=== PATIENT | female | born 1960 | race Caucasian/White ===

== ENCOUNTER 2016-07-04 12:06 | Emergency (ER) | payer OTHER ==
[~2016-07-04] VITALS: Ht 182.9 cm; Wt 80.0 kg
[~2016-07-04 12:06] MED LIST: unknown meds
[2016-07-04 12:38] VITALS: Ht 182.9 cm; Wt 80.0 kg
[2016-07-04 17:17] LABS: ADD UMIC NO; URINE BILIRUBIN (Dip) NEGATIVE (NEGATIVE); URINE BLOOD (Dip) NEGATIVE (NEGATIVE); URINE COLOR LT. YELLOW (YELLOW); URINE GLUCOSE (Dip) NEGATIVE (NEGATIVE); URINE KETONES (Dip) NEGATIVE (NEGATIVE); URINE LEUKOCYTE ESTERASE (Dip) NEGATIVE (NEGATIVE); URINE NITRITE (Dip) NEGATIVE (NEGATIVE); URINE TOTAL PROTEIN (Dip) NEGATIVE (NEGATIVE); URINE UROBILINOGEN (Dip) 0.2 E.U./dL (0.1-1.0)
[2016-07-04] MEDS ORDERED: TRAM50TA2 PO (18:03)
--- NOTE | 2016-07-04 19:03 | ERD ---
ER Documentation Chief Complaint Date/Time DATE: 07/04/16 TIME: 18:58 Chief Complaint lower back pain possible urine infection per patient HPI 55-year-old female with left-sided cerebral palsy presents to the ED complaining of wanting to have her urine rechecked for a bladder infection. States that she was diagnosed with cystitis 1 week ago and was taking antibiotic for 3 days. Reports that the antibiotic made her symptoms feel better. Denies any dysuria, urgency, frequency, abdominal pain, nausea, vomiting, diarrhea. Patient is unable to describe the pain. States that it feels like it is "in the inside." ROS All systems reviewed and are negative except as per history of present illness. Medications Home Meds Active Scripts Tramadol HCl (Tramadol HCl) 50 Mg Tablet, 50 MG PO Q6 Y for PAIN, #20 TAB Prov:PARAM MCGRAW PA-C 07/04/16 Reported Medications [unknown meds] No Conflict Check 06/13/09 PMhx/Soc History of Surgery: Yes (right hand and leg from cerebral palsy,c-sections) Hx Neurological Disorder: Yes (cerebral palsy) Hx Respiratory Disorders: No Hx Cardiac Disorders: No Hx Miscellaneous Medical Probl: No Hx Alcohol Use: Yes Hx Substance Use: Yes (speed) Hx Tobacco Use: Yes (2-3 cigarettes per day) Smoking Status: Current every day smoker Physical Exam Vitals Vital Signs Date Time Temp Pulse Resp B/P Pulse Ox O2 Delivery O2 Flow Rate FiO2 07/04/16 12:38 97.8 90 18 159/75 98 Physical Exam Const: Dya-djg-upaeciyhe, well-nourished. In no acute distress. Head: Atraumatic, normocephalic Eyes: Normal Conjunctiva without injection. No purulent discharge. PERRLA. EOMI ENT: Normal external ear. Ear canal without erythema. Tympanic membrane pearly patterson without effusion or bulging. Nasal canal clear with normal turbinates. Moist oropharynx without tonsillar exudates. Non-erythematous pharynx. Uvula midline. No drooling. No trismus. Neck: No cervical midline tenderness. Full range of motion. No meningismus. No cervical lymphadenopathy. No JVD. Resp: Clear to auscultation bilaterally. No wheezing, rhonchi, rales, or crackles. No accessory muscle use. No retractions. Cardio: Regular rate and rhythm. No murmurs, rubs or gallops. Abd: Soft, non tender, non distended. Normal bowel sounds. No palpable masses. No rebound tenderness. No guarding. Negative McBurney's Point. Negative Austin's Sign. Skin: Normal skin turgor. No petechiae or rashes Back: No midline tenderness. No CVA tenderness. Ext: No cyanosis, or edema. Distal pulses intact bilaterally. Neur: Awake and alert. Normal gait. Normal coordination. Cranial Nerves II- VII intact. Normal finger to nose. Muscle strength 5/5. Sensation intact. Psych: Normal Mood and Affect Results 24 hrs Laboratory Tests Test 07/04/16 16:55 Urine Bilirubin NEGATIVE Urine Clarity CLEAR Urine Color LT. YELLOW Urine Glucose NEGATIVE% Urine Hemoglobin NEGATIVE Urine Ketones NEGATIVE Urine Leukocyte Esterase NEGATIVE Urine Nitrite NEGATIVE Urine Specific [place] 1.025 Urine Total Protein NEGATIVE Urine Urobilinogen 0.2 E.U./dL Urine pH 6.0 Procedures/MDM 55-year-old female with a past medical history of cerebral palsy presents to the ED complaining of left flank pain. Patient is afebrile and nontoxic- appearing. Patient has normal vital signs. A urinalysis was ordered to further evaluate patient. Urinalysis shows no leukocyte esterase, hematuria, nitrite. A urine culture will be sent out. Patient's left flank pain could likely be due to possible musculoskeletal pain versus flank pain of unknown origin. There is low suspicion for a septic renal stone, nephrolithiasis, pyelonephritis, or other emergent conditions. A differential diagnosis considered includes but is not limited to gastritis, GERD, peptic ulcer disease , cholecystitis, choledocholithiasis, cholangitis, pancreatitis, appendicitis, bowel obstruction, ileus, volvulus, nephrolithiasis, pyelonephritis, hepatitis, perforated viscus, diverticulitis, abdominal hernia, acute abdomen, mesenteric ischemia or other emergent conditions. 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 Instructed patient to return to the ED sooner for any worsening symptoms. Patient's questions were answered. Patient understood and agreed with discharge plan. Patient discharged stable. Departure Diagnosis: Primary Impression: Encounter for urine test Additional Impression: Left flank pain Condition: Stable Patient Instructions: Flank Pain, Uncertain Cause, Urine Culture Referrals: COMMUNITY CLINICS YOU HAVE RECEIVED A MEDICAL SCREENING EXAM AND THE RESULTS INDICATE THAT YOU DO NOT HAVE A CONDITION THAT REQUIRES URGENT TREATMENT IN THE EMERGENCY DEPARTMENT. FURTHER EVALUATION AND TREATMENT OF YOUR CONDITION CAN WAIT UNTIL YOU ARE SEEN IN YOUR DOCTORS OFFICE WITHIN THE NEXT 1-2 DAYS. IT IS YOUR RESPONSIBILITY TO MAKE AN APPOINTMENT FOR FOLOW-UP CARE. IF YOU HAVE A PRIMARY DOCTOR --you should call your primary doctor and schedule an appointment IF YOU DO NOT HAVE A PRIMARY DOCTOR YOU CAN CALL OUR PHYSICIAN REFERRAL HOTLINE AT IF YOU CAN NOT AFFORD TO SEE A PHYSICIAN YOU CAN CHOSE FROM THE FOLLOWING [facility] [address] [facility]. [facility] [address] [facility]. [facility] [address] [facility] [facility] [address] [facility] [facility] [address] [facility]. [facility] [address] [facility]. [facility] YOU HAVE RECEIVED A MEDICAL SCREENING EXAM AND THE RESULTS INDICATE THAT YOU DO NOT HAVE A CONDITION THAT REQUIRES URGENT TREATMENT IN THE EMERGENCY DEPARTMENT. FURTHER EVALUATION AND TREATMENT OF YOUR CONDITION CAN WAIT UNTIL YOU ARE SEEN IN YOUR DOCTORS OFFICE WITHIN THE NEXT 1-2 DAYS. IT IS YOUR RESPONSIBILITY TO MAKE AN APPOINTMENT FOR FOLOW-UP CARE. IF YOU HAVE A PRIMARY DOCTOR --you should call your primary doctor and schedule and appointment IF YOU DO NOT HAVE A PRIMARY DOCTOR YOU CAN CALL OUR PHYSICIAN REFERRAL HOTLINE AT . IF YOU CAN NOT AFFORD TO SEE A PHYSICIAN YOU CAN CHOSE FROM THE FOLLOWING [facility] INSTITUTIONS: [facility] [address] [email or web address] [address] [facility] [address] [place] [address] [facility] + [facility] [address] [place] [address] [facility] URGENT CARE/SPECIALTIES Additional Instructions: FOLLOW UP WITH YOUR PRIMARY CARE PHYSICIAN TOMORROW.Return to this facility if you are not improving as expected. You have been given a medicine which may cause drowsiness.DO NOT DRIVE OR OPERATE DANGEROUS MACHINERY while taking this medicine! PARAM MCGRAW PA-C Jul 04, 2016 19:03
== END 2016-07-04 20:22 | disposition left against medical advice (07) ==
LOC: FTE 12:06
DX: Z00.00 Encounter for general adult medical examination without abnormal findings (principal); R10.9 Unspecified abdominal pain; F17.210 Nicotine dependence, cigarettes, uncomplicated
CPT/HCPCS: 81003; 99283

== ENCOUNTER 2017-02-11 11:22 | Day surgery (SDC) | payer OTHER ==
[~2017-02-11] VITALS: Ht 177.8 cm; Wt 89.1 kg
[~2017-02-11 11:22] MED LIST changes: +TRAM50TA2 PO
[2017-02-11 12:05] VITALS: Ht 177.8 cm; Wt 89.1 kg
[2017-02-11] MEDS ORDERED: HIGH BP MED PO (12:12)
[2017-02-11] MEDS ORDERED: VALIUM PO (12:12)
[2017-02-11 12:36] VITALS: BP 146/82; PULSE 76
[2017-02-11] MEDS ORDERED: PROPOFOL 40 ML ONE (14:07)
--- NOTE | 2017-02-11 15:14 | OPPN ---
Date/Time of Note Date/Time of Note DATE: 02/11/17 TIME: 15:11 Operative Report Preoperative Diagnosis Screening colonoscopy Postoperative Diagnosis Diverticulosis Small 3 mm polyp at 20 cm Operation/Procedure Performed Colonoscopy cold biopsy polypectomy at 20 cm Provider: VAIBHAV SORIANO MD Anesthesia Type: MAC (Dr. Galvan) Estimated blood loss: none Transfusion Required: no Specimens 3 mm polyp at 20 cm removed cold biopsy forceps Grafts/Implants: none Complications: no (3 MM polyp at 20 cm) VAIBHAV SORIANO MD Feb 11, 2017 15:14
--- NOTE | 2017-02-12 01:47 | GILP ---
DATE OF PROCEDURE: 02/11/2017 PREOPERATIVE DIAGNOSIS: Screening colonoscopy. POSTOPERATIVE DIAGNOSIS: Polyp at 20 cm, 3-mm polyp diverticulosis. DESCRIPTION OF PROCEDURE: The patient was put in left lateral decubitus after obtaining informed consent. The patient was sedated, monitored by the anesthesiologist, Dr. Navarrete, and rectal exam done, which was normal. Advanced Olympus video colonoscope all the way to the cecum. Diverticulosis was noted in the left colon. Right colon was normal. Cecum and ascending colon are normal. Transverse colon was normal. Descending, sigmoid colon showed only diverticulosis. At 20 cm, a 3-mm polyp was noted. Photography done. Multiple core biopsies, polypectomy done then removed completely. Withdrew the scope slowly out. Rectum examined, including retroflexion, and unremarkable. PLAN: Await for biopsy report. Follow up as an outpatient. Repeat colonoscopy in 3 years. Dictated By: Emeterio Romero MD /stacy/zehra /Document#: [id number] ; DR. BATSHEVA BRVAO
== END 2017-02-11 18:33 | disposition home or self-care (01) ==
LOC: GIL 11:22
PROVIDERS: ATTEND Internal Medicine
DX: Z12.11 Encounter for screening for malignant neoplasm of colon (principal); K63.5 Polyp of colon; K57.30 Diverticulosis of large intestine without perforation or abscess without bleeding; I10 Essential (primary) hypertension
CPT/HCPCS: 45380; 88305; Z7610

== ENCOUNTER 2017-10-19 05:41 | Inpatient (IN) | END 2017-10-27 16:15 | DRG 469 ==

== ENCOUNTER 2018-09-25 11:24 | Inpatient (IN) | payer OTHER ==
[~2018-09-25] VITALS: Ht 172.7 cm; Wt 95.8 kg
[2018-09-25] VITALS (24 sets, daily range): BP systolic 105–161; BP diastolic 56–91; PULSE 68–94; RESP 14–20; Ht 172.7 cm; Wt 95.8 kg
[~2018-09-25 11:24] MED LIST changes: +ENOX40DI12 SC; +HYDR-3601 PO; +LOSA25TA12 PO; +METO-319 PO; +OXYC-431 PO; -TRAM50TA2 PO; +TRAZ-149 PO; -unknown meds
[2018-09-25] MEDS ORDERED: CEFAZOLIN 2 GM/50 ML (PMX) 50 ML IVPB ONE (11:30)
[2018-09-25] MEDS ORDERED: LOSA50TA14 PO (11:59)
[2018-09-25] MEDS ORDERED: POLYMYXIN/BACITRACIN 1L IRRIG ONE (13:04)
--- NOTE | 2018-09-25 13:11 | PREAC ---
Date/Time of Note Date/Time of Note DATE: 09/25/18 TIME: 13:09 Anesthesia Eval and Record Evaluation Time Pre-Procedure Interview DATE: 09/25/18 TIME: 13:09 Age 58 Sex female NPO: 8 hrs Preoperative diagnosis RIGHT FLATFOOT Planned procedure SURGICAL RECONSTRUCTION OF RIGHT FLAT FOOT DEFORMITY, INCLUDING SUBTALAR JOINT ARTHRODESIS Past Medical History Past Medical History: Includes Cardio: HTN GI: Obesity Surgery & Anesthesia Issues No known issue Meds Anticoagulation: No Beta Saniya within 24 hr: No Reason Beta Saniya not given: Pt. not on B-Saniya Reported Medications Losartan Potassium* (Losartan Potassium*) 50 Mg Tablet, 50 MG PO DAILY, TAB 09/25/18 Discontinued Reported Medications Losartan Potassium* (Losartan Potassium*) 25 Mg Tablet, 25 MG PO DAILY, TAB 10/19/17 Metoprolol Succinate* (Toprol XL*) 50 Mg Tab.er.24h, 50 MG PO DAILY, #30 TAB 10/19/17 Discontinued Scripts Trazodone Hcl* (Desyrel*) 50 Mg Tab, 25 MG PO HS PRN for SLEEP for 1 Day, TAB Prov:PEREZ RAMÍREZ MD 10/27/17 Enoxaparin Sodium (Enoxaparin Sodium) 40 Mg/0.4 Ml Syringe, 40 MG SC DAILY for 10 Days Prov:PEREZ RAMÍREZ MD 10/27/17 Hydrocodone Bit-Acetaminophen (Hydrocodone Bit-APAP) 5-325MG Tablet, 1 TAB PO Q6H PRN for MODERATE PAIN LEVEL 4-6 for 10 Days, TAB Prov:PEREZ RAMÍREZ MD 10/27/17 Oxycodone HCl/Acetaminophen (Oxycodone-Acetaminophen 10-325) 1 Each Tablet, 1 TAB PO Q4H PRN for PAIN for 10 Days, TAB Prov:PEREZ RAMÍREZ MD 10/27/17 Meds reviewed: Yes Allergies Coded Allergies: No Known Allergy (Unverified , 09/25/18) Allergies Reviewed: Yes Labs/Studies Labs Reviewed: Reviewed by anesthesiologist test: N/A Studies: ECG (NL) Pre-procedure Exam Last vitals Vital Signs Date Temp Pulse Resp B/P (MAP) Pulse Ox O2 O2 Flow FiO2 Time Delivery Rate 09/25/18 97.9 94 20 126/88 96 Room Air 12:38 (101) Airway: Adequate mouth opening, Adequate thyromental dist Mallampati: Mallampati II Teeth: Abnormal (UPPER DENTURE) Lung: Normal Heart: Normal ASA Physical Status ASA physical status: 2 Emergency: None Planned Anesthetic General/MAC: ETT Nerve block: Sciatic (right) Planned Pain Management Single shot nerve block, Parenteral pain med Pre-operative Attestations Prior to commencing anesthesia and surgery, the patient was re-evaluated, there was verification of: *The patient's identity *The results of appropriate recent lab work and preoperative vital signs *The above evaluation not changing prior to induction *Anesthetic plan, risk benefits, alternative and complications discussed with patient/family; questions answered; patient/family understands, accepts and wishes to proceed. Pawan Rangel M.D. Sep 25, 2018 13:11
[2018-09-25] MEDS ORDERED: GLYCOPYRROLATE 0.4 MG INJ ONE (13:16)
[2018-09-25] MEDS ORDERED: ROCURONIUM 50 MG INJ ONE (13:16)
[2018-09-25] MEDS ORDERED: MIDAZOLAM 1 MG/ML 2 ML INJ ONE (13:16)
[2018-09-25] MEDS ORDERED: PROPOFOL 20 ML ONE (13:16)
[2018-09-25] MEDS ORDERED: CEFAZOLIN 1 GM INJ ONE (13:16)
[2018-09-25] MEDS ORDERED: NEOSTIGMINE 3 MG/3 ML SYRINGE ONE (13:16)
[2018-09-25] MEDS ORDERED: DEXAMETHASONE 4 MG/ML 5 ML INJ ONE (13:16)
[2018-09-25] MEDS ORDERED: FENTAnyl 50 MCG/ML VIAL ONE (13:16)
[2018-09-25] MEDS ORDERED: ONDANSETRON 4 MG INJ ONE (13:16)
[2018-09-25] MEDS ORDERED: ROPIVACAINE 0.5 % 30 ML VIAL ONE ×2 (13:20→13:53)
--- NOTE | 2018-09-25 13:20 | HPN ---
Date/Time of Note Date/Time of Note DATE: 09/25/18 TIME: 13:20 Interval H&P Admission Note Pt. seen H&P reviewed: No system changes KASSY DRAKE DPM Sep 25, 2018 13:20
[2018-09-25] MEDS ORDERED: LABETALOL HCL 20MG INJ IV PRN (13:30)
[2018-09-25] MEDS ORDERED: hydrALAzine 20 MG INJ IV PRN (13:30)
[2018-09-25] MEDS ORDERED: ONDANSETRON 4 MG INJ IV PRN (13:30)
[2018-09-25] MEDS ORDERED: EPHEDrine SULFATE 50 MG/5 ML SYG IV PRN (13:30)
[2018-09-25] MEDS ORDERED: DIPHENHYDRAMINE 50 MG INJ IV PRN (13:30)
[2018-09-25] MEDS ORDERED: TRIMETHOBENZAMIDE 100 MG/ML VIAL IM PRN (13:30)
[2018-09-25] MEDS ORDERED: HYDROmorphONE 1 MG/5 ML IV SYRINGE IV PRN ×2 (13:30)
[2018-09-25] MEDS ORDERED: MIDAZOLAM 1 MG/ML 2 ML INJ IV PRN (13:30)
[2018-09-25] MEDS ORDERED: OXYCODONE/ACETAMINOPHEN (5/325) TAB PO PRN ×2 (13:30)
[2018-09-25] MEDS ORDERED: FENTAnyl 50 MCG/ML VIAL IV PRN ×3 (13:30)
[2018-09-25] MEDS ORDERED: IPRATROPIUM (NEB) 0.5 MG/2.5 ML AMP HHN PRN (13:30)
[2018-09-25] MEDS ORDERED: ALBUTEROL 0.083% (NEB) 2.5 MG/3 ML AMP HHN PRN (13:30)
[2018-09-25] MEDS ORDERED: MEPERIDINE 25 MG INJ IV PRN (13:30)
--- NOTE | 2018-09-25 15:35 | PAC ---
Date/Time of Note Date/Time of Note DATE: 09/25/18 TIME: 15:35 Post-Anesthesia Notes Post-Anesthesia Note Last documented vital signs Vital Signs Date Temp Pulse Resp B/P (MAP) Pulse Ox O2 O2 Flow FiO2 Time Delivery Rate 09/25/18 97.9 94 20 126/88 96 Room Air 12:38 (101) Activity: WNL Respiratory function: WNL Cardiovascular function: WNL Mental status: Baseline Pain reasonably controlled: Yes Hydration appropriate: Yes Nausea/Vomiting absent: Yes Pawan Rangel M.D. Sep 25, 2018 15:35
--- NOTE | 2018-09-25 15:46 | SIPON ---
Date/Time of Note Date/Time of Note DATE: 09/25/18 TIME: 15:45 Operative Report Preoperative Diagnosis Severe right flatfoot deformity S/P right ankle total ankle replacement Excessive pronation of the subtalar joint Right foot pain Gait disturbance Postoperative Diagnosis Severe right flatfoot deformity S/P right ankle total ankle replacement Excessive pronation of the subtalar joint Right foot pain Gait disturbance Operation/Procedure Performed Right flatfoot reconstruction Subtalar joint arthroroesis using implant Surgeon see signature line cardiovascular physician assistant None Anesthesia: general Estimated blood loss: minimal Transfusion Required none Specimen None Grafts/Implants none Complications none KASSY DRAKE DPM Sep 25, 2018 15:46
[2018-09-25] MEDS: HYDROmorphONE 1 MG/5 ML IV SYRINGE IV PRN ×2 (15:53→16:05)
--- NOTE | 2018-09-25 15:53 | OPR ---
Date/Time of Note Date/Time of Note DATE: 09/25/18 TIME: 15:53 Operative Report Procedure Date: Sep 25, 2018 Preoperative Diagnosis Right flatfoot deformity Achilles equinus right Status post right total ankle replacement Morbid obesity Hypertension Cerebral palsy Postoperative Diagnosis Right flatfoot deformity Achilles equinus right Status post right total ankle replacement Morbid obesity Hypertension Cerebral palsy Operation/Procedure Performed Right calcaneal medial slide osteotomy Subtalar joint arthrodesis using implant right foot Intraoperative use and interpretation of fluoroscopy Application of posterior splint to the right lower extremity Surgeon see signature line Marine Engine Driver None Anesthesia Type: general Estimated Blood Loss: minimal Transfusion none Specimen None Grafts/Implants none Complications none Pt Condition Post Procedure: stable Disposition: PACU Indications This is a pleasant 58-year-old female patient who is status post right total ankle replacement 1 year ago. She has severe right foot deformity and equinus of the Achilles tendon causing severe right flatfoot and causing significant pain when she is ambulating. She was fully evaluated in the office both radiographically and clinically and the recommendation was made to do surgical correction of right flatfoot deformity to include possible right Achilles tendon lengthening, medial calcaneal osteotomy, subtalar joint arthrodesis with implant, forefoot correction. Risks and complications of this type of surgery was discussed with patient in great detail. The risks and complications discussed, include but are not limited to, postoperative infection, postoperative pain and disability, gait disturbance, failure of surgery to correct the problem, need for additional surgical procedures, nonunion, delayed union, malunion of bone, gait disturbance, deep venous thrombosis, limb loss and loss of life. The patient understands the risks and complications discussed and agrees to the procedure. An informed consent was obtained, signed and placed in the chart. No guarantee or warranty was given or implied as to the outcome of the procedure either in verbal or written form. Procedure Description The patient was taken to the operating room and was placed on the operating table in the supine position. A thigh tourniquet was applied. Patient was placed under general anesthesia by the anesthesiologist. A 10 pound bag was placed on the ipsilateral hip. The right lower extremity was scrubbed, prepped and draped in the usual aseptic manner. A timeout was called by the circulating nurse and agreed upon by all members of the operating room. The right lower extremity was then scrubbed, prepped and draped in the usual aseptic manner. An Esmarch bandage was utilized to exsanguinate the right lower extremity and the thigh tourniquet was inflated to 300 mmHg pressure. Procedure #1: Subtalar joint arthrodesis using implant Procedure #2: Right medial calcaneal slide osteotomy with internal fixation Adjunctive procedures: Intraoperative use and interpretation of fluoroscopy; application of posterior splint x2 to the right lower extremity Attention was directed to the right sinus Tarsi area. A small 1 cm incision was made on the sinus Tarsi using a #15 blade. Bleeders were cauterized as necessary. Dissection was then deepened to the sinus Tarsi canal using blunt dissection. The guidewire was placed into the sinus canal and verified using intraoperative fluoroscopy. The canal was widened and I started with a #6 implants and proceeded with a #8 implant. The #8 implants seem to be providing control of excessive pronation of the subtalar joint. Next, the size 8 implant was inserted and verified under intraoperative fluoroscopy. Next, an incision was made on the lateral aspect of the right calcaneus using a #15 blade. This incision was deepened through to the periosteal layer with care being taken to identify vital neurovascular structures. A arnold elevator was used to dissect periosteally and expose the lateral aspect of the calcaneus. Using intr aoperative fluoroscopy, I used an osteotome and mallet and I made an osteotomy across the body of the calcaneus on the posterior aspect. Next, the posterior aspect of the calcaneus was moved medially and I used 2 kesha for fixation of this new position for the calcaneus. Intraoperative fluoroscopy guidance was used. At this point, I checked for equinus and was found to have 5 degrees of dorsiflexion of the ankle joint. I checked the forefoot and noted that with the current fixation and correction, patient was able to be plantigrade on the medial side as well. The Achilles tendon lengthening and the forefoot correction will be delayed at this time. Both incisions were then closed in layered closure using 4-0 Vicryl and skin was closed using 2-0 nylon in simple suture technique. The patient will be receiving a popliteal block by the anesthesiologist. Sterile dressing was applied to the right foot. The thigh tourniquet was deflated at this time and prompt hyperemic response was noted to the digits of the right foot. I placed to posterior splints on the right lower extremity. Patient tolerated the procedure and anesthesia well. She was transferred to the recovery room with vital signs stable and vascular status intact to the right lower extremity. The patient will be admitted to the hospital for pain management. Patient is to remain nonweightbearing on the right lower extremity. Postoperative orders were written. I have contacted the hospitalist for admission orders. Patient will be followed in-house. KASSY DRAKE DPM Sep 25, 2018 15:53
--- NOTE | 2018-09-25 16:48 | HP ---
Date/Time of Note Date/Time of Note DATE: 09/25/18 TIME: 16:37 Assessment/Plan VTE Prophylaxis Risk score (from Nsg)>0 risk: 3 SCD applied (from Ns): Yes Pharmacological prophylaxis: NA/contraindicated Pharm contraindication: low risk/ambulating Lines/Catheters IV Catheter Type (from Nrsg): Peripheral IV Assessment/Plan Assessment/Plan 58 yo obese woman history of cerebral palsy and HTN admitted after scheduled R foot surgery # s/p Right flatfoot reconstruction - Dr. Mcclain following - PO opioid analgesia prn - PT - CM consulted for rehab placement. #HTN - Will hold home ARB due to nationwide recall (losartan found to be contaminated with NMDA) - Benazepril while inpatient. DVT: SCDs GI: None HPI/ROS Admit Date/Time Admit Date/Time September 25, 2018 Hx of Present Illness Ms. Galeas is a pleasant 58 yo woman with history of HTN and cerebral palsy admitted after scheduled R foot surgery. The patient has a history of R sided spasticity due to her cerebral palsy. She had severe R ankle and foot pain for several years; had ankle surgery by Dr. Mcclain about 1 year ago. Continued to have pain from flat feet so scheduled today for elective foot surgery. She denies ever requiring opiates for this pain. Has been controlled on occasional tylenol and ibuprofen. Postoperative patient doing well, vitals good, pain adequately controlled. Dr. Mcclain requested admission for pain control, PT, and placement in rehab. ROS 12 point review of systems done, negative except per HPI. PMH/Family/Social Past Medical History Cerebral palsy Hypertension Medications Current Medications Hydromorphone HCl (Dilaudid) 0.2 mg PACU PRN IV MILD PAIN 1-3 Last administered on 09/25/18at 16:35; Admin Dose 0.2 MG; Start 09/25/18 at 13:30; Stop 09/25/18 at 18:00 Hydromorphone HCl (Dilaudid) 0.4 mg PACU PRN IV MOD PAIN 4-6 Last administered on 09/25/18at 16:05; Admin Dose 0.4 MG; Start 09/25/18 at 13:30; Stop 09/25/18 at 18:00 Hydromorphone HCl (Dilaudid) 0.6 mg PACU PRN IV SEVERE PAIN 7-10; Start 09/25/18 at 13:30; Stop 09/25/18 at 18:00 Fentanyl (Sublimaze) 25 mcg PACU ORDER PRN IV MILD PAIN 1-3; Start 09/25/18 at 13:30; Stop 09/25/18 at 18:00 Fentanyl (Sublimaze) 50 mcg PACU ORDER PRN IV MOD PAIN 4-6; Start 09/25/18 at 13:30; Stop 09/25/18 at 18:00 Fentanyl (Sublimaze) 75 mcg PACU ORDER PRN IV SEVERE PAIN 7-10; Start 09/25/18 at 13:30; Stop 09/25/18 at 18:00 Oxycodone/ Acetaminophen (Percocet (5/ 325)) 1 tab PACU ORDER PRN PO .PAIN 1-5; Start 09/25/18 at 13:30; Stop 09/25/18 at 18:00 Oxycodone/ Acetaminophen (Percocet (5/ 325)) 2 tab PACU ORDER PRN PO .PAIN 6-10; Start 09/25/18 at 13:30; Stop 09/25/18 at 18:00 Ondansetron HCl (Zofran Inj) 4 mg PACU ORDER PRN IV NAUSEA/VOMITING Last administered on 09/25/18at 15:53; Admin Dose 4 MG; Start 09/25/18 at 13:30; Stop 09/25/18 at 18:00 Trimethobenzamide HCl (Tigan) 200 mg PACU ORDER PRN IM NAUSEA/VOMITING; Start 09/25/18 at 13:30; Stop 09/25/18 at 18:00 Labetalol HCl (Labetalol) 5 mg PACU ORDER PRN IV HIGH BLOOD PRESSURE Last administered on 09/25/18at 15:49; Admin Dose 5 MG; Start 09/25/18 at 13:30; Stop 09/25/18 at 18:00 Hydralazine HCl (Apresoline) 5 mg PACU ORDER PRN IV HIGH BLOOD PRESSURE; Start 09/25/18 at 13:30; Stop 09/25/18 at 18:00 Ephedrine Sulfate 5 mg PACU ORDER PRN IV BLOOD PRESSURE SUPPORT; Start 09/25/18 at 13:30; Stop 09/25/18 at 18:00 Albuterol (Proventil 0.083% (Neb)) 2.5 mg PACU ORDER PRN HHN .WHEEZING; Start 09/25/18 at 13:30; Stop 09/25/18 at 18:00 Ipratropium Lynch (Atrovent 0.02% (Neb)) 0.5 mg PACU ORDER PRN HHN .WHEEZING; Start 09/25/18 at 13:30; Stop 09/25/18 at 18:00 Meperidine HCl (Demerol) 25 mg PACU ORDER PRN IV .RIGORS; Start 09/25/18 at 13:30; Stop 09/25/18 at 18:00 Diphenhydramine HCl (Benadryl) 25 mg PACU ORDER PRN IV .PRURITUS; Start 09/25/18 at 13:30; Stop 09/25/18 at 18:00 Midazolam HCl (Versed) 0.5 mg PACU ORDER PRN IV .ANXIETY; Start 09/25/18 at 13:30; Stop 09/25/18 at 18:00 IV Flush (NS 3 ml) 3 ml PER PROTOCOL IV ; Start 09/25/18 at 17:00 Ondansetron HCl (Zofran Inj) 4 mg Q6H PRN IV NAUSEA/VOMITING; Start 09/25/18 at 17:00; Status UNV Acetaminophen (Tylenol Tab) 650 mg Q6H PRN PO .PAIN 1-3 OR TEMP; Start 09/25/18 at 17:00; Status UNV Acetaminophen/ Hydrocodone Bitart ([place] (5/325)) 1 tab Q4H PRN PO BREAKTHROUGH PAIN; Start 09/25/18 at 17:00; Status UNV Coded Allergies: No Known Allergy (Unverified , 09/25/18) Past Surgical History C section x3 Appendectomy R hand surgery Family History Significant Family History: no pertinent family hx Social History Alcohol Use: occasionally Smoking Status: Former smoker (quit 1.5 years ago) Drug Use: marijuana (rarely) Exam/Review of Systems Vital Signs Vitals Vital Signs Date Temp Pulse Resp B/P (MAP) Pulse Ox O2 O2 Flow FiO2 Time Delivery Rate 09/25/18 76 16 137/80 95 Nasal 2.0 16:30 (99) Cannula 09/25/18 98.1 15:40 Exam Exam Gen: Obese woman well developed no acute distress. Eyes: PERRL, no icterus HEENT: Moist mucous membranes, clear oropharynx Neck: No lymphadenopathy Card: Regular rate and rhythm, no murmurs Pulm: Clear to auscultation bilaterally Abd: Soft, nontender, nondistended. Ext: R lower leg splinted. Peripheral cap refill and sensation intact. L leg peripheral pulses intact. Skin: warm, dry, well perfused. JUAN RAMON PONCE MD Sep 25, 2018 16:47
[2018-09-25] MEDS ORDERED: ACETAMINOPHEN 325 MG TAB PO PRN (17:00)
[2018-09-25] MEDS: LISINOPRIL 10 MG TAB PO SCH (17:00)
[2018-09-25] MEDS ORDERED: NACL 0.9% 3 ML SYG IV SCH (17:00)
[2018-09-25] MEDS: morphine 4 MG/ML VIAL IV PRN (17:28)
[2018-09-25] MEDS: HYDROCODONE/APAP (5/325) TAB PO PRN (21:00)
[2018-09-26 00:07] VITALS: BP 102/52; PULSE 85; RESP 18
[2018-09-26] MEDS: HYDROCODONE/APAP (5/325) TAB PO PRN ×2 (02:50→20:51)
[2018-09-26 04:03] VITALS: BP 108/60; PULSE 82; RESP 18
[2018-09-26 07:30] VITALS: BP 112/62; PULSE 78; RESP 19
[2018-09-26] MEDS: ONDANSETRON 4 MG INJ IV PRN ×2 (07:54→17:06)
[2018-09-26] MEDS: morphine 4 MG/ML VIAL IV PRN ×4 (07:54→20:51)
[2018-09-26] MEDS: LISINOPRIL 10 MG TAB PO SCH (07:56)
[2018-09-26 14:21] VITALS: BP 121/65; PULSE 88; RESP 18
--- NOTE | 2018-09-26 16:28 | PN ---
Date/Time of Note Date/Time of Note DATE: 09/26/18 TIME: 16:27 Assessment/Plan VTE Prophylaxis Risk score (from Ns)>0 risk: 7 SCD applied (from Ns): Yes Pharmacological prophylaxis: NA/contraindicated Pharm contraindication: low risk/ambulating Lines/Catheters IV Catheter Type (from Nrsg): Saline Lock Assessment/Plan Assessment/Plan 58 yo obese woman history of cerebral palsy and HTN admitted after scheduled R foot surgery # s/p Right flatfoot reconstruction - Dr. Mcclain following - PO opioid analgesia prn - PT #HTN - Will hold home ARB due to nationwide recall (losartan found to be contaminated with NMDA) - Benazepril while inpatient. DVT: SCDs GI: None Dispo: Patient wants to go to [facility] for rehab. Pending authorization from case management. Result Diagram: 09/26/1844409/26/18444 Subjective 24 Hr Interval Summary Free Text/Dictation No acute overnight events. Patient doing well, walking with PT. Exam/Review of Systems Exam Vitals Vital Signs Date Temp Pulse Resp B/P (MAP) Pulse Ox O2 O2 Flow FiO2 Time Delivery Rate 09/26/18 98.2 88 18 121/65 98 14:21 (83) 09/25/18 Nasal 2.0 18:20 Cannula Intake and Output 09/25/18 09/25/18 09/26/18 1414:59 22:59 06:59 IntakeIntake Total 1000 ml 200 ml OutputOutput Total 10 ml BalanceBalance 1000 ml -10 ml 200 ml Exam Gen: Obese woman well developed no acute distress. Eyes: PERRL, no icterus HEENT: Moist mucous membranes, clear oropharynx Neck: No lymphadenopathy Card: Regular rate and rhythm, no murmurs Pulm: Clear to auscultation bilaterally Abd: Soft, nontender, nondistended. Ext: R lower leg splinted. Peripheral cap refill and sensation intact. L leg peripheral pulses intact. Skin: warm, dry, well perfused. Results Results 24hrs Laboratory Tests Test 09/26/18 04:45 09/26/18 07:52 White Blood Count 11.0 #H Red Blood Count 4.05 L Hemoglobin 12.3 Hematocrit 36.1 L Mean Corpuscular Volume 89.1 Mean Corpuscular Hemoglobin 30.4 Mean Corpuscular Hemoglobin Concent 34.1 Red Cell Distribution Width 13.1 Platelet Count 252 Mean Platelet Volume 10.8 H Immature Granulocytes % 0.700 H Neutrophils % 82.1 H Lymphocytes % 11.8 L Monocytes % 5.2 Eosinophils % 0.0 Basophils % 0.2 Nucleated Red Blood Cells % 0.0 Immature Granulocytes # 0.080 H Neutrophils # 9.0 H Lymphocytes # 1.3 Monocytes # 0.6 Eosinophils # 0.0 Basophils # 0.0 Nucleated Red Blood Cells # 0.0 Sodium Level 140 Potassium Level 4.4 Chloride Level 108 Carbon Dioxide Level 24 Anion Gap 8 Blood Urea Nitrogen 16 Creatinine 0.80 Est Glomerular Filtrat Rate mL/min > 60 Glucose Level 169 Hemoglobin A1c 5.4 Calcium Level 8.8 Phosphorus Level 3.2 Magnesium Level 1.9 Total Bilirubin 0.8 Direct Bilirubin 0.00 Indirect Bilirubin 0.8 Aspartate Amino Transf (AST/SGOT) 39 Alanine Aminotransferase (ALT/SGPT) 52 Alkaline Phosphatase 70 Total Protein 5.9 L Albumin 3.6 Globulin 2.30 Albumin/Globulin Ratio 1.56 Thyroid Stimulating Hormone (TSH) 0.804 Lab Scanned Report REFERENCE LAB Medications Medication Current Medications IV Flush (NS 3 ml) 3 ml PER PROTOCOL IV ; Start 09/25/18 at 17:00 Ondansetron HCl (Zofran Inj) 4 mg Q6H PRN IV NAUSEA/VOMITING Last administered on 09/26/18at 07:54; Admin Dose 4 MG; Start 09/25/18 at 17:00 Acetaminophen (Tylenol Tab) 650 mg Q6H PRN PO .PAIN 1-3 OR TEMP; Start 09/25/18 at 17:00 Acetaminophen/ Hydrocodone Bitart ([place] (5/325)) 1 tab Q4H PRN PO SEVERE PAIN LEVEL 7-10 Last administered on 09/26/18at 02:50; Admin Dose 1 TAB; Start 09/25/18 at 17:00 Lisinopril (Zestril) 10 mg DAILY PO Last administered on 09/26/18at 07:56; Admin Dose 10 MG; Start 09/25/18 at 17:00 Morphine Sulfate (morphine) 4 mg Q2H PRN IV BREAKTHROUGH PAIN Last administered on 09/26/18at 11:38; Admin Dose 4 MG; Start 09/25/18 at 17:30 JUAN RAMON PONCE MD Sep 26, 2018 16:28
[2018-09-26 19:54] VITALS: BP 112/61; PULSE 80; RESP 16
[2018-09-26] MEDS ORDERED: traZODone 50 MG TAB PO ONE (23:00)
[2018-09-27] MEDS: HYDROCODONE/APAP (5/325) TAB PO PRN ×4 (01:25→20:51)
[2018-09-27] MEDS: morphine 4 MG/ML VIAL IV PRN ×5 (01:25→22:02)
[2018-09-27 01:46] VITALS: BP 90/51; PULSE 75; RESP 16
[2018-09-27 02:00] VITALS: BP 99/57; PULSE 63
[2018-09-27 08:17] VITALS: BP 98/57; PULSE 75; RESP 18
[2018-09-27] MEDS: LISINOPRIL 10 MG TAB PO SCH (09:58)
--- NOTE | 2018-09-27 11:07 | PN ---
Date/Time of Note Date/Time of Note DATE: 09/27/18 TIME: 11:06 Assessment/Plan Lines/Catheters IV Catheter Type (from Nrsg): Saline Lock Assessment/Plan Problems: (1) Postop check (2) History of total ankle replacement Assessment/Plan Normal postop. Keep bandages clean dry and intact. I will change bandages tomorrow. Remain nonweightbearing on the right lower extremity. Patient will be followed in-house. Subjective 24 Hr Interval Summary Postop day 2 status post surgical correction of right foot flatfoot deformity and previous total ankle replacement. Doing well. Denies fever and chills and reports minimal pain. Able to move toes. Constitutional: no complaints Pain Control: well controlled Exam/Review of Systems Vital Signs Vitals Vital Signs Date Temp Pulse Resp B/P (MAP) Pulse Ox O2 O2 Flow FiO2 Time Delivery Rate 09/29/18 18 121/62 98 14:20 (81) 09/29/18 98.2 82 07:47 09/28/18 Room Air 19:20 Intake and Output 09/29/18 09/29/18 09/30/18 1515:00 23:00 07:00 IntakeIntake Total 620 ml BalanceBalance 620 ml Exam Free Text/Dictation Patient is laying supine in bed in no acute distress. Posterior splint and ban dages are intact to the right lower extremity. Patient is able to move her toes and reports full sensation to light, sharp, vibratory and temperature stimuli. Labs reviewed. Imaging reviewed. Results Result Diagram: 09/26/18 0445 09/26/18 0445 KASSY DRAKE DPM September 27, 2018 11:07
--- NOTE | 2018-09-27 12:51 | PN ---
Date/Time of Note Date/Time of Note DATE: 09/27/18 TIME: 12:51 Assessment/Plan VTE Prophylaxis Risk score (from Nsg)>0 risk: 7 SCD applied (from Ns): Yes Pharmacological prophylaxis: NA/contraindicated Pharm contraindication: low risk/ambulating Lines/Catheters IV Catheter Type (from Nrsg): Saline Lock Assessment/Plan Assessment/Plan 58 yo obese woman history of cerebral palsy and HTN admitted after scheduled R foot surgery # s/p Right flatfoot reconstruction - Dr. Mcclain following - PO opioid analgesia prn - PT - CM consulted for rehab placement. - Dr Mcclain will change dressing in am #HTN - cw benazepril Result Diagram: 09/26/18 0445 09/26/18 0445 Subjective 24 Hr Interval Summary Free Text/Dictation No new events Exam/Review of Systems Exam Vitals Vital Signs Date Temp Pulse Resp B/P (MAP) Pulse Ox O2 O2 Flow FiO2 Time Delivery Rate 09/27/18 97.9 75 18 98/57 (71) 94 Room Air 08:17 09/25/18 2.0 18:20 Intake and Output 09/26/18 09/26/18 09/27/18 1515:00 23:00 07:00 IntakeIntake Total 480 ml BalanceBalance 480 ml Exam Exam Gen: Obese woman well developed no acute distress. Eyes: PERRL, no icterus HEENT: Moist mucous membranes, clear oropharynx Neck: No lymphadenopathy Card: Regular rate and rhythm, no murmurs Pulm: Clear to auscultation bilaterally Abd: Soft, nontender, nondistended. Ext: R lower leg splinted. Skin: warm, dry, well perfused. Medications Medication Current Medications IV Flush (NS 3 ml) 3 ml PER PROTOCOL IV ; Start 09/25/18 at 17:00 Ondansetron HCl (Zofran Inj) 4 mg Q6H PRN IV NAUSEA/VOMITING Last administered on 09/26/18at 17:06; Admin Dose 4 MG; Start 09/25/18 at 17:00 Acetaminophen (Tylenol Tab) 650 mg Q6H PRN PO .PAIN 1-3 OR TEMP; Start 09/25/18 at 17:00 Acetaminophen/ Hydrocodone Bitart ([place] (5/325)) 1 tab Q4H PRN PO SEVERE PAIN LEVEL 7-10 Last administered on 09/27/18at 06:31; Admin Dose 1 TAB; Start 09/25/18 at 17:00 Lisinopril (Zestril) 10 mg DAILY PO Last administered on 09/27/18at 09:58; Admin Dose 10 MG; Start 09/25/18 at 17:00 Morphine Sulfate (morphine) 4 mg Q2H PRN IV BREAKTHROUGH PAIN Last administered on 09/27/18at 10:00; Admin Dose 4 MG; Start 09/25/18 at 17:30 JOSEF BENITES MD September 27, 2018 12:51
[2018-09-27 14:52] VITALS: BP 102/65; PULSE 82; RESP 18
[2018-09-27 19:51] VITALS: BP 130/64; PULSE 79; RESP 18
[2018-09-28] MEDS ORDERED: METOCLOPRAMIDE 10 MG INJ IV SCH (00:30)
[2018-09-28] MEDS: HYDROCODONE/APAP (5/325) TAB PO PRN ×4 (00:48→19:16)
[2018-09-28] MEDS: traZODone 50 MG TAB PO PRN ×2 (00:48→22:00)
[2018-09-28 01:54] VITALS: BP 112/58; PULSE 81; RESP 18
[2018-09-28] MEDS: morphine 4 MG/ML VIAL IV PRN ×6 (02:46→23:02)
[2018-09-28 08:20] VITALS: BP 106/56; PULSE 75; RESP 18
[2018-09-28] MEDS ORDERED: POLYETHYLENE GLYCOL 17 GM PACKET PO ONE (14:30)
[2018-09-28] MEDS ORDERED: DOCUSATE SODIUM 100 MG CAP PO PRN (14:30)
--- NOTE | 2018-09-28 14:33 | PN ---
Date/Time of Note Date/Time of Note DATE: 09/28/18 TIME: 14:31 Assessment/Plan VTE Prophylaxis Risk score (from Ns)>0 risk: 4 SCD applied (from Ns): Yes Pharmacological prophylaxis: NA/contraindicated Pharm contraindication: low risk/ambulating Lines/Catheters IV Catheter Type (from Nrsg): Peripheral IV Assessment/Plan Hospital Course Assessment/Plan 58 yo obese woman history of cerebral palsy and HTN admitted after scheduled R foot surgery # s/p Right flatfoot reconstruction - Dr. Mcclain following - PO opioid analgesia prn - PT - CM consulted for rehab placement. - Dr Mcclain will change dressing in am #HTN - cw benazepril dc snif DC ON ASA per dr mcclain Result Diagram: 09/26/1844409/26/18444 Subjective 24 Hr Interval Summary Free Text/Dictation constipated Exam/Review of Systems Exam Vitals Vital Signs Date Temp Pulse Resp B/P (MAP) Pulse Ox O2 O2 Flow FiO2 Time Delivery Rate 09/28/18 98.0 75 18 106/56 94 Room Air 08:20 (73) 09/25/18 2.0 18:20 Intake and Output 09/27/18 09/27/18 09/28/18 1515:00 23:00 07:00 IntakeIntake Total 400 ml BalanceBalance 400 ml Exam Gen: Obese woman well developed no acute distress. Eyes: PERRL, no icterus HEENT: Moist mucous membranes, clear oropharynx Neck: No lymphadenopathy Card: Regular rate and rhythm, no murmurs Pulm: Clear to auscultation bilaterally Abd: Soft, nontender, nondistended. Ext: R lower leg splinted. Skin: warm, dry, well perfused. Medications Medication Current Medications IV Flush (NS 3 ml) 3 ml PER PROTOCOL IV ; Start 09/25/18 at 17:00 Ondansetron HCl (Zofran Inj) 4 mg Q6H PRN IV NAUSEA/VOMITING Last administered on 09/26/18at 17:06; Admin Dose 4 MG; Start 09/25/18 at 17:00 Acetaminophen (Tylenol Tab) 650 mg Q6H PRN PO .PAIN 1-3 OR TEMP; Start 09/25/18 at 17:00 Acetaminophen/ Hydrocodone Bitart ([place] (5/325)) 1 tab Q4H PRN PO SEVERE PAIN LEVEL 7-10 Last administered on 09/28/18at 08:41; Admin Dose 1 TAB; Start 09/25/18 at 17:00 Morphine Sulfate (morphine) 4 mg Q2H PRN IV BREAKTHROUGH PAIN Last administered on 09/28/18at 12:33; Admin Dose 4 MG; Start 09/25/18 at 17:30 Trazodone HCl (Desyrel) 25 mg HS PRN PO INSOMNIA Last administered on 09/28/18at 00:48; Admin Dose 25 MG; Start 09/28/18 at 01:00 JOSEF BENITES MD September 28, 2018 14:33
--- NOTE | 2018-09-28 14:34 | PDOCDIS ---
Discharge Instructions DIAGNOSIS Discharge Diagnosis surgical correction of right foot flatfoot deformity and previous total ankle replacement. CONDITION [id number] Patient Condition: [id number] Fair HOME CARE INSTRUCTIONS: [id number] Diet Instructions: [id number] Regular ACTIVITY: [id number] Activity Restrictions: [id number] Slowly Increase Activity Rest between Activity Avoid heavy lifting Do not Drive Do not operate Machinery Do not operate Power Tool Avoid Heavy Housework Keep Limb Elevated No Weight Bearing [id number] Bathing Restrictions: [id number] Shower FOLLOW UP/APPOINTMENTS Follow-up Plan f/u Dr Mcclain on tuesday fu pcp in 1-2 weeks JOSEF BENITES MD September 28, 2018 14:34
[2018-09-28] MEDS ORDERED: BISACODYL 10 MG SUPP PR PRN (15:00)
[2018-09-28] MEDS: ASPIRIN 81 MG TAB PO SCH (15:30)
[2018-09-28 15:56] VITALS: BP 102/54; PULSE 78; RESP 18
[2018-09-28 19:20] VITALS: BP 113/60; PULSE 84; RESP 20
--- NOTE | 2018-09-28 22:24 | DS ---
DATE OF ADMISSION: 09/25/2018 DATE OF DISCHARGE: 09/28/2018 HISTORY OF PRESENT ILLNESS AND HOSPITAL COURSE: This is a 58-year-old woman with a history of hypert ension and cerebral palsy, admitted for right foot surgery. The patient had right-sided ____ cerebra l palsy. The patient had right ankle foot pain for several years, had ankle surgery by Dr. Mcclain ab out a year ago, continued to have pain on the flat feet, so she was scheduled for elective foot surge ry. The patient had a right foot reconstruction that was done by Dr. Mcclain on 09/25. She had a rig ht foot deformity, Achilles equinus and previous right total ankle replacement. Postop, patient was feeling better. BMP within normal limits. Vital signs were stable. The patient was taking losartan at home. Currently, the patient is feeling much better. The patient is currently being transferred to rehab. She was seen by physical therapy and was cleared. According to Dr. Mcclain, the patient n eeds nonweightbearing on the right lower extremity for 2 months. The patient should be on aspirin. FINAL DISCHARGE DIAGNOSES: 1. Right flat foot deformity, status post right calcaneal medial slide osteotomy, subtalar joint art hrodesis using implant, right foot, application of posterior splint to the right lower extremity. 2. Status post history of right total ankle replacement. 3. Morbid obesity. 4. Hypertension. 5. Cerebral palsy. DISCHARGE CONDITION: Stable. DISCHARGE DIET: Two-gram sodium. DISCHARGE MEDICATIONS: 1. We will be [place] 1 tab p.o. q.4 hours p.r.n. pain. 2. Colace 100 mg p.o. b.i.d. p.r.n. constipation. 3. Trazodone at bedtime p.r.n. insomnia. 4. Losartan can be resumed when the blood pressure is over 120. 5. The patient will also be started on aspirin 81 daily to be continued for [address] Mcclain. The patient will follow Dr. Mcclain on next Tuesday within a week. Dictated By: JOSEF GREGORY/DANY Conf#: [id number] DID#: [id number]
[2018-09-29] MEDS: morphine 4 MG/ML VIAL IV PRN ×4 (01:55→14:04)
[2018-09-29 07:47] VITALS: BP 119/68; PULSE 82; RESP 19
[2018-09-29] MEDS: ASPIRIN 81 MG TAB PO SCH (08:11)
[2018-09-29] MEDS: HYDROCODONE/APAP (5/325) TAB PO PRN ×2 (10:59→16:01)
[2018-09-29 14:20] VITALS: BP 121/62; RESP 18
--- NOTE | 2018-09-29 15:47 | PN ---
Date/Time of Note Date/Time of Note DATE: 09/29/18 TIME: 15:46 Assessment/Plan Lines/Catheters IV Catheter Type (from Nrsg): Peripheral IV Assessment/Plan Problems: (1) Postop check (2) History of total ankle replacement (3) Flatfoot Assessment/Plan 1. Bandages were changed today 2. September d/c home 3. Remain non weightbearing on the RIGHT lower extremity 4. Follow up in my office on Tuesday Subjective 24 Hr Interval Summary Post op day 4; s/p RIGHT flatfoot deformity reconstruction. Prior hx of RIGHT total ankle replacement. Doing well; denies overnight adverse events. Denies fever, chills, nausea, or vomiting. Constitutional: no complaints Pain Control: well controlled Exam/Review of Systems Vital Signs Vitals Vital Signs Date Temp Pulse Resp B/P (MAP) Pulse Ox O2 O2 Flow FiO2 Time Delivery Rate 09/29/18 98.2 82 19 119/68 96 07:47 (85) 09/28/18 Room Air 19:20 09/25/18 2.0 18:20 Intake and Output 09/28/18 09/28/18 09/29/18 1414:59 22:59 06:59 IntakeIntake Total 480 ml 1170 ml OutputOutput Total 1 ml BalanceBalance 480 ml 1169 ml Exam Free Text/Dictation All dressings and splints were removed; no sign of infection present. Wound edges are well coapted and sutures are intact. Mild edema of the right foot and ankle noted on exam. No erythema noted; mild tenderness to palpation of the surgical site noted. Results Result Diagram: 09/26/18 0445 09/26/18 0445 KASSY DRAKE DPM September 29, 2018 15:47
== END 2018-09-29 16:00 | DRG 505 ==
LOC: SDS 11:24 → REC 15:53 → SUATTDRO 16:11 → MS1 17:09
PROVIDERS: ADMIT Podiatrist Foot & Ankle Surgery; ATTEND Internal Medicine
PROC: 0SUH0JZ Supplement Right Tarsal Joint with Synthetic Substitute, Open Approach (ICD-10-PCS; 2018-09-25)
PROC: 0QSL04Z Reposition Right Tarsal with Internal Fixation Device, Open Approach (ICD-10-PCS; principal; 2018-09-25 13:30)
DX: M21.41 Flat foot [pes planus] (acquired), right foot (principal); M67.01 Short Achilles tendon (acquired), right ankle; E66.01 Morbid (severe) obesity due to excess calories; G80.9 Cerebral palsy, unspecified; I10 Essential (primary) hypertension; R26.9 Unspecified abnormalities of gait and mobility; Z96.661 Presence of right artificial ankle joint; Z68.32 Body mass index [BMI] 32.0-32.9, adult; Z87.891 Personal history of nicotine dependence
CPT/HCPCS: 71045; 73630; 80053; 83036; 83735; 84100; 84443; 85025; 97116; 97161; 97530; J0690; J1100; J1170; J2175; J2250; J2270; J2405; J2710; J2795; J3010